=== PATIENT | female | born 1995 | race Caucasian/White ===

== ENCOUNTER 2020-09-13 01:46 | Emergency (ER) | payer OTHER ==
[~2020-09-13] VITALS: Ht 157.5 cm; Wt 50.0 kg
[2020-09-13] MEDS ORDERED: ONDANSETRON ODT 4 MG PO ONE (02:00)
--- NOTE | 2020-09-13 02:03 | NUR ---
PT AMBULATED TO ROOM, NO ACUTE DISTRESS. PA TO BEDSIDE TO EVAL PT.
[2020-09-13 02:22] LABS: BASOPHILS % (AUTO) 1 % (0-1); EOSINOPHILS % (AUTO) 1 % (1-7); LYMPHOCYTES % (AUTO) 23 % (22-44); MEAN CORPUSCULAR HEMOGLOBIN 31.6 pg (27.0-34.8); MEAN CORPUSCULAR HGB CONC 34.1 g/dL (32.4-35.8); MEAN PLATELET VOLUME 8.7 fL (7.4-10.4); MONOCYTES % (AUTO) 8 % (2-9); NEUTROPHILS % (AUTO) 68 % (42-75); PLATELET COUNT 209 x10^3/uL (130-400); RED BLOOD COUNT 4.42 x10^6/uL (3.82-5.3); RED CELL DISTRIBUTION WIDTH 12.8 % (9.6-15.2)
[2020-09-13 02:23] LABS: MD NO
[2020-09-13 02:30] LABS: ALBUMIN 4.2 g/dL (3.4-5.0); ANION GAP 8 mmol/L (5-15); CALCIUM 8.9 mg/dL (8.5-10.1); CHLORIDE 106 mmol/L (98-107); CREATININE 0.74 mg/dL (0.55-1.02)
[2020-09-13 02:31] VITALS: BP 145/80
[2020-09-13] MEDS ORDERED: ONDANSETRON ODT 4 MG ONE (02:43)
--- NOTE | 2020-09-13 03:05 | NUR ---
F/U AND D/C INSTRUCTIONS GIVEN TO PT AND SHE V/U.
== END 2020-09-13 03:07 ==
LOC: ED 02:39
DX: R55 Syncope and collapse (principal); R42 Dizziness and giddiness; R11.0 Nausea
CPT/HCPCS: 36415; 80048; 82040; 84703; 85025; 93005; 99284